=== PATIENT | male | born 1950 | race Caucasian/White ===

== ENCOUNTER 2017-03-24 23:36 | Emergency (ER) | payer OTHER ==
[~2017-03-24] VITALS: Ht 175.3 cm; Wt 64.3 kg
[2017-03-25] MEDS ORDERED: LISI-167 PO (00:37)
[2017-03-25] MEDS ORDERED: LIDOCAINE 1%, 10ML INFIL ONE (01:00)
[2017-03-25] MEDS ORDERED: LIDOCAINE 1%, 20ML ONE (01:07)
[2017-03-25 02:32] VITALS: BP 208/104
== END 2017-03-25 02:36 | disposition home or self-care (01) ==
LOC: ED 23:59
DX: S06.0X0A Concussion without loss of consciousness, initial encounter (principal); S01.01XA Laceration without foreign body of scalp, initial encounter; I10 Essential (primary) hypertension; W19.XXXA Unspecified fall, initial encounter; Y93.89 Activity, other specified; Y99.8 Other external cause status; Y92.89 Other specified places as the place of occurrence of the external cause
CPT/HCPCS: 12002; 70450

== ENCOUNTER → 2019-01-15 | Outpatient (CLI) | payer OTHER ==
[~2019-01-15] MED LIST: ATEN25TA PO; GADOBUTROL 7.5 MMOL/7.5 ML PFS ONE; LISI-167 PO; LISI1TAB7 PO; PRAV10TA2 PO; PRAV20TA2 PO; THIA50TA4 PO
== END | disposition home or self-care (01) ==
LOC: RAD 18:15
PROVIDERS: ATTEND Family Medicine
DX: R42 Dizziness and giddiness (principal); R11.10 Vomiting, unspecified
CPT/HCPCS: 70553; A9585